=== PATIENT | male | born 1980 | race Two or more races ===

== ENCOUNTER 2022-05-17 11:45 | Day surgery (SDC) | payer OTHER ==
[~2022-05-17] VITALS: Ht 172.7 cm; Wt 79.4 kg
[~2022-05-17 11:45] MED LIST: HYDR1TAB97 PO; TIZA4TAB9 PO
[2022-05-17] MEDS ORDERED: ceFAZolin 1GM/50ML 100 ML IV ONE (11:56)
[2022-05-17] MEDS ORDERED: LIDOCAINE 2% (LOCAL ANESTH.) PF 5ml SDV ONE (11:58)
[2022-05-17] MEDS ORDERED: PROPOFOL 10 MG/ML 20 ML IV ONE (11:58)
[2022-05-17] MEDS ORDERED: fentaNYL CITRATE 100 MCG/2 ML VL ONE ×2 (11:58→14:43)
[2022-05-17] MEDS ORDERED: GLYCOPYRROLATE 0.2 MG/ML 1ML VIAL ONE (11:58)
[2022-05-17] MEDS ORDERED: HYDROmorphone HCL 2 MG/ML VL/or syr ONE (11:58)
[2022-05-17] MEDS ORDERED: DexAMETHasone SOD PHOS 10MG/1ML VIAL INJ ONE (11:58)
[2022-05-17] MEDS ORDERED: KETOROLAC TROMETH 30 MG/ML 1ML VIAL ONE (11:58)
[2022-05-17] MEDS ORDERED: MIDAZOLAM HCL 2MG/2ML 2ml VIAL (1mg/ml) ONE (11:58)
[2022-05-17] MEDS ORDERED: ONDANSETRON HCL 4 MG/2 ML VIAL ONE (11:58)
[2022-05-17] MEDS ORDERED: SUGAMMADEX 200mg/2ml Vial (100MG/ML) IV ONE (14:15)
[2022-05-17] MEDS ORDERED: LABETALOL HCL 5 MG/ML 4ML SYRINGE IV PRN (16:00)
[2022-05-17] MEDS ORDERED: METOCLOPRAMIDE HCL 5MG/ml INJ 2ml VIAL IV PRN (16:00)
[2022-05-17] MEDS ORDERED: MIDAZOLAM HCL 2MG/2ML 2ml VIAL (1mg/ml) IV PRN (16:00)
[2022-05-17] MEDS ORDERED: KETOROLAC TROMETH 30 MG/ML 1ML VIAL IV ONE (16:00)
[2022-05-17] MEDS ORDERED: ePHEDrine SULFATE 50 MG/ML AMP IV PRN (16:00)
[2022-05-17] MEDS ORDERED: ONDANSETRON HCL 4 MG/2 ML VIAL IV PRN (16:00)
[2022-05-17] MEDS ORDERED: MORPHINE SULFATE 4 MG/ML SYR/VIAL IV PRN (16:00)
[2022-05-17] MEDS: HYDROmorphone HCL 2 MG/ML VL/or syr IV PRN ×3 (16:33→16:53)
[2022-05-17 17:00] VITALS: BP 128/76
== END 2022-05-17 17:20 | disposition home or self-care (01) ==
LOC: SUR 11:45
PROVIDERS: ATTEND Orthopaedic Surgery
DX: S42.302A Unspecified fracture of shaft of humerus, left arm, initial encounter for closed fracture (principal); Z20.822 Contact with and (suspected) exposure to COVID-19; X58.XXXA Exposure to other specified factors, initial encounter; Y93.89 Activity, other specified; Y92.89 Other specified places as the place of occurrence of the external cause; Y99.8 Other external cause status; Z90.49 Acquired absence of other specified parts of digestive tract
CPT/HCPCS: 24515; 73060; J0690; J1100; J1170; J1885; J2001; J2250; J2405; J2704; J3010; U0003; 76000